=== PATIENT | female | born 1965 | race Caucasian/White ===

== ENCOUNTER 2018-05-21 09:25 | Outpatient (CLI) | payer MEDICAID, SELFPAY ==
--- NOTE | 2018-05-20 10:35 | DI.MRI_ITS ---
SYMPTOM/DIAGNOSIS: CERVICAL RADICULOPATHY, M54.12, NECK AND RT ARM PAIN CERVICAL SPINE MRI: Routine noncontrast examination was performed. No priors. There is normal signal in the spinal cord. No evidence of tonsillar ectopia is present. At C 7-T 1, no focal disc herniation, central spinal canal or neural foraminal stenosis is seen. At C 6-7, there is mild prominence of the osteophyte disc complex but no central spinal canal or neural foraminal stenosis is present. At C 5-6, there is prominence of the osteophyte disc complete. There is some effacement of the anterior subarachnoid space but there is CSF seen surrounding the cord. There is mild narrowing of the neural foramen bilaterally at this level, left greater than right. At C 4-5, there is no focal disc herniation, central spinal canal or neural foraminal stenosis present. There are mild hypertrophic changes seen at the right uncovertebral joint. At C 3-3 and C 2-3, there is no focal disc herniation, central spinal canal or neural foraminal stenosis. Marrow signal is within normal limits. IMPRESSION: Mild degenerative changes seen in the cervical spine as described above. The findings are most marked at the C 5-6 level.
== END 2018-05-21 09:45 ==
PROVIDERS: PCP Student in an Organized Health Care Education/Training Program; Visit Provider Psychiatry & Neurology Neurology
DX: M54.12 Radiculopathy, cervical region (principal); M54.2 Cervicalgia; M79.601 Pain in right arm; M50.322 Other cervical disc degeneration at C5-C6 level
CPT/HCPCS: 72141

== ENCOUNTER 2018-06-15 12:07 | Outpatient (CLI) | payer MEDICAID, SELFPAY ==
--- NOTE | 2018-06-15 06:00 | DI.RAD_ITS ---
SYMPTOM/DIAGNOSIS: CERVICAL RADICULOPATHY C-ARM: Fluoroscopy Time: 20.8sec,5.21mgy Fluoroscopy was utilized by Dr. Manuel during the performance of a cervical epidural steroid injection. Please refer to the procedure report for complete details.
[2018-06-15 12:16] VITALS: BP 119/81; PULSE 66; RESP 20; TEMP 36.8; O2SAT 97
[2018-06-15] MEDS: Midazolam 2 MG/2 ML VIAL IVP (12:38)
[2018-06-15] MEDS: Lactated Ringers 1,000 ML 80 ML IV (12:39)
[2018-06-15 12:46] VITALS: BP 111/77; PULSE 79; RESP 18; O2SAT 95
[2018-06-15] MEDS: Dexamethasone Sod. Phos./Pres-Free 10 MG/ML VIAL IJ (12:47)
[2018-06-15] MEDS: Omnipaque 240 MG/ML 50 ML BTL IJ (12:48)
--- NOTE | 2018-06-15 12:48 | PDOC.PAIN ---
Pain Clinic Procedure Note Current Active Problems Problem Status Onset Cervical radiculopathy Acute Cervical Epidural Steroid Injection HERI LIEBERMAN has been [facility] for cervical epidural steroid injection. COMMENTS: She had this procedure completed in 2016 with excellent results. I did review Ms. Chua's evaluation from 06/01/18. Ms. LIEBERMAN was interviewed and the medical record reviewed. There were no medical, pharmacologic, radiographic or other structural contraindications to attempting fluoroscopically guided epidural steroid injection. Risks and expected side effects as well as potential benefit of the procedure were reviewed with Ms. LIEBERMAN , and Ms. LIEBERMAN voiced concerns addressed. The printed consent form was signed and witnessed. Standard time-out procedure was performed. The patient was placed in the prone position on the fluoroscopy table and automated blood pressure cuff and pulse oximeter applied. The skin entry point for entering the epidural space by a midline C7-T1 interlaminar approach was identified under fluoroscopy and marked. Following thorough Chlorhexadine preparation of the skin and draping and 1% lidocaine infiltration of the skin entry point and subcutaneous tissues, an 18 gauge Tuohy needle was placed under fluoroscopic guidance and with loss of resistance technique into the C7-T1 epidural space. Upon needle placement and loss of resistance there were no paresthesiae or return of blood or CSF through the needle. 1 cc of Omnipaque 240 was injected with clear epidural spread in the A/P, lateral and oblique views. 15 mg of preservative free Dexomethasone was injected with no unusual discomfort expressed by Ms. LIEBERMAN. This was flushed with 1 cc of normal saline. Ms. MIO Rileys vital signs were stable throughout the procedure and were as recorded in the docflowsheet by the nursing staff. Follow up plans and appointments were discussed with the Ms. LIEBERMAN. Post procedure instruction was given as documented in nursing documentation and having met discharge criteria, Ms. LIEBERMAN was discharged from the [facility]. COMMENTS: This procedure can be completed up to 3 times per 12 months if it is found to be effective. Aamir Manuel DO, MPH [facility] - Subspecialty Board Certification in Pain Medicine CC: Joya Wong
== END 2018-06-15 12:27 ==
PROVIDERS: PCP Student in an Organized Health Care Education/Training Program; Visit Provider Preventive Medicine Occupational Medicine
DX: M54.12 Radiculopathy, cervical region (principal)
CPT/HCPCS: 62321; 72040; J2250; Q9967